=== PATIENT | male | born 1940 | race Caucasian/White ===

== ENCOUNTER → 2016-06-08 | Outpatient (CLI) | payer MEDICARE, OTHER ==
[~2016-06-08] MED LIST: FURO40TA PO; LISI40TA PO; OXYC1TAB36 PO
[2016-06-08 11:17] LABS: HDL CHOLESTEROL 45.7 MG/DL (40.0-60.0); POTASSIUM 4.6 MEQ/L (3.5-5.1)
== END ==
LOC: CLAB 10:08
PROVIDERS: ATTEND Family Medicine
DX: I10 Essential (primary) hypertension (principal); I50.30 Unspecified diastolic (congestive) heart failure; I87.8 Other specified disorders of veins; R60.9 Edema, unspecified
CPT/HCPCS: 36415; 80048; 80061

== ENCOUNTER → 2017-08-26 | Outpatient (CLI) | payer MEDICARE, OTHER ==
[~2017-08-26] MED LIST changes: +ASPI81CH6 CHEW; -FURO40TA PO
[2017-08-26 13:42] LABS: AUTOMATED NEUTROPHIL # 5.3 TH/MM3 (1.8-7.7); BASOPHIL % 0.5 % (0.0-2.0); EOSINOPHIL # 0.1 TH/MM3 (0-0.4); EOSINOPHIL % 0.7 % (0.0-4.0); LYMPH % 18.2 % (9.0-44.0); LYMPHOCYTE # 1.3 TH/MM3 (1.0-4.8); MEAN CELL VOLUME 92.2 FL (80.0-100.0); MEAN CORPUSCULAR HEMOGLOBIN 30.8 PG (27.0-34.0); MEAN CORPUSCULAR HGB CONC 33.4 % (32.0-36.0); MEAN PLATELET VOLUME 8.2 FL (7.0-11.0); MONO % 7.8 % (0.0-8.0); MONOCYTE # 0.6 TH/MM3 (0-0.9); NEUT % 72.8 % (16.0-70.0); PLATELET COUNT 255 TH/MM3 (150-450); RED BLOOD COUNT 4.23 MIL/MM3 (4.50-5.90); RED CELL DISTRIBUTION WIDTH 15.2 % (11.6-17.2); WHITE BLOOD COUNT 7.3 TH/MM3 (4.0-11.0)
[2017-08-26 14:02] LABS: ALBUMIN 3.8 GM/DL (3.4-5.0); AST (GOT) 22 U/L (15-37); BICARBONATE 22.8 MEQ/L (21.0-32.0); BLOOD UREA NITROGEN 20 MG/DL (7-18); CALCIUM 8.7 MG/DL (8.5-10.1); CHLORIDE 107 MEQ/L (98-107); CHOLESTEROL 217 MG/DL (120-200); CREATININE 1.32 MG/DL (0.60-1.30); GLOMERULAR FILTRATION RATE 53 ML/MIN (>89); GLUCOSE,FASTING 99 MG/DL (74-99); SODIUM (NA) 140 MEQ/L (136-145); TRIGLYCERIDES 184 MG/DL (42-150)
[2017-08-26 14:05] LABS: ALKALINE PHOSPHATASE 79 U/L (45-117); ALT (GPT) 27 U/L (12-78); HDL CHOLESTEROL 41.7 MG/DL (40.0-60.0); LDL CHOLESTEROL 139 MG/DL (0-99); TOTAL BILIRUBIN ADULT 1.2 MG/DL (0.2-1.0); TOTAL PROTEIN 7.6 GM/DL (6.4-8.2)
== END ==
LOC: CLAB 13:03
PROVIDERS: ATTEND Family Medicine
DX: I10 Essential (primary) hypertension (principal)
CPT/HCPCS: 36415; 80053; 80061; 85025

== ENCOUNTER 2017-09-27 06:45 | Inpatient (IN) ==
[2017-09-27] MEDS ORDERED: Metoprolol Tartrate 25 MG Tablet PO SCH (07:30)
[2017-09-27] MEDS ORDERED: Chlorhexidine Gluconate 2% 1 Pack (2 Cloths) TOPICAL SCH (07:30)
[2017-09-27] MEDS ORDERED: Vancomycin Inj 1 GM/200 ML PIGGYBACK IV.SIG SCH (07:37)
[2017-09-27] MEDS ORDERED: ceFAZolin 2 GM IV; once IV.SIG SCH (07:45)
[2017-09-27] MEDS: Dexamethasone Inj 20 MG/5 ML Vial ONE ×2 (08:00→18:27)
[2017-09-27] MEDS ORDERED: Tranexamic Acid Inj 3,000 MG in Sodium Chlor 0.9% Inj 100 ML P-ARTICULR SCH (08:00)
[2017-09-27] MEDS ORDERED: Sodium Chlor 0.9% Inj 500 ML IV.SIG SCH (08:00)
[2017-09-27] MEDS ORDERED: SODIUM CHLOR 0.9% IV.SIG SCH (08:30)
[2017-09-27] MEDS ORDERED: TRANEXAMIC ACID IV.SIG SCH (08:30)
[2017-09-27] MEDS ORDERED: Sodium Chlor 0.9% Inj 73.07 ML, Ropivacaine 0.5% PF Inj 24.63 ML, Ketorolac Inj 30 MG, ... P-ARTICULR SCH ×5 (08:30)
[2017-09-27] MEDS ORDERED: Bupivacaine/Dextrose 0.75% Inj 2 ML Ampul ONE (09:20)
[2017-09-27] MEDS ORDERED: Phenylephrine/NS 1000 MCG/10ML Syringe IV.PUSH ONE (12:00)
[2017-09-27] MEDS ORDERED: Glycopyrrolate Inj 1 MG/5 ML Syringe IV.PUSH ONE (12:00)
--- NOTE | 2017-09-27 12:12 | MP ---
cc: Alberto Cooley MD DATE OF OPERATION: 09/27/2017 DATE OF SURGERY: 09/27/2017 PREOPERATIVE DIAGNOSIS: Right knee osteoarthritis. POSTOPERATIVE DIAGNOSIS: Right knee osteoarthritis. PROCEDURE PERFORMED: Right total knee arthroplasty. SURGEON: Alberto Cooley MD BUSINESS ASSISTANT: AYESHA Barrera. ANESTHESIA: General with femoral nerve adductor canal block. ESTIMATED BLOOD LOSS: 100 mL. TOURNIQUET TIME: 32 minutes at 250 mmHg. COMPLICATIONS: None. IMPLANTS USED: DePuy Attune size 8 posterior stabilized femoral component, size 8 rotating platform tibial baseplate, size 5 mm polyethylene tibia insert, size 41 patella. JUSTIFICATION: This patient is a 77-year-old male with history of severe osteoarthritis involving the right knee joint. He has severe disabling pain with standing, walking, ambulation, weight-bearing activities, even severe pain at rest. He has failed greater than 3 months of nonoperative conservative treatment to include medication therapy, injections, ambulatory assistive aids, home exercise program, activity modification, weight loss attempts. X-ray of the right knee reveals severe osteoarthritis and [id number] joint space narrowing, subchondral sclerosis, subchondral cyst, osteophyte formation with subluxation. The patient was counseled as to the risks, benefits and alternatives to a total knee arthroplasty. The risks were discussed, which include, but are not limited to anesthesia, bleeding, infection, damage to nerves and blood vessels, pain, stiffness failure of the components, blood clots, pulmonary embolism, and even . The patient's pain was severe. He favored the benefits over the risks and did wish to proceed with surgery. PROCEDURE IN DETAIL: Written consent was obtained. The patient was identified by name, taken to the operating room and placed supine on the operating table. Anesthesia was administered as well as 2 grams of IV Ancef, 1 gram IV vancomycin. A well-padded tourniquet was placed on the right thigh, the right lower extremity prepped and draped using isopropyl alcohol, Hibiclens solution and ChloraPrep solution. After a timeout was performed, an Esmarch bandage was used to exsanguinate the right lower extremity. Tourniquet was inflated to 250 mmHg. A longitudinal incision was made over the anterior aspect of the right knee. A medial parapatellar arthrotomy was performed. The patella was everted. The patellar resection guide was used to resect 9 mm of the patella. The size 41 mm guide was placed. Three drill holes were placed and the 41 mm trial fit well. Attention was turned to the femur where an intramedullary guide aliza was placed and distal femoral guide was set to remove 10 mm of distal femur, 5 degrees off the anatomic valgus axis alignment. Oscillation saw was used to perform the distal femoral cut. Attention was turned to the tibia where an extramedullary tibial guide was set to remove 5 mm off the lateral portion of the medial tibial plateau. Tibial guides were then placed and tibial cut was performed. A 5 mm spacer block showed full extension. Attention was turned back to the femur where an AP sizing block measured a size 8. The anterior reference 3-degree external rotation guide was used to pin a size [address] Anterior, posterior and chamfer cuts were performed. A size 8 PCL box was pinned in place and the PCL was bowed out with an oscillating saw. The medial and lateral meniscus remnants were removed was well as bone and soft tissue debrided from the posterior portion of the knee. A size 8 tibial base was pinned in place and tibia drilled and punched. Trial components were evaluated and final components were pinned in placed. With the current components the leg could achieve full extension to 0 degrees and flexion to 140 with no evidence of tibial liftoff. Varus/valgus balance appeared appropriate and symmetric, and the patella was noted to track centrally. Tourniquet was deflated. Bovie cautery was used for hemostasis. The surgical wound was thoroughly irrigated with sterile saline pulse lavage with antibiotic impregnated solution. The arthrotomy incision was closed with #1 Vicryl suture, subcutaneous layer with 2-0 Vicryl. Skin was closed with Dermabond. Sterile dressing applied. The patient tolerated the procedure well with no intraoperative complications noted. Mustapha Bennett, physician election assistant certified, was present during the entire procedure to include patient positioning and the procedure itself. The medical necessity of a physician election assistant was indicated in this case due to the complexity of the procedure. He assisted with appropriate manipulation of the leg and also retraction of muscle, tendon, bone and neurovascular structures. He assisted with preparation of bone and also implantation of the prosthetic replacement. MD MARTHA Wayne/SUNSHINE , 11:51 AM , 12:11 PM
[2017-09-27] MEDS ORDERED: Post-op Orders (for Pharmacy) OTHER STA (12:16)
[2017-09-27] MEDS ORDERED: Bisacodyl 10 MG Supp RECTAL PRN (13:09)
[2017-09-27] MEDS ORDERED: HYDROmorphone PF Inj 2 MG/ML Vial IV.PUSH PRN (13:09)
[2017-09-27] MEDS ORDERED: Zolpidem Tartrate 5 MG Tablet PO PRN (13:09)
--- NOTE | 2017-09-27 13:20 | XR ---
EXAM DATE: 09/27/2017 1:17 PM EDT AGE/SEX: 77 years / Male INDICATIONS: Post op right knee surgery CLINICAL DATA: This is the patient's initial encounter. Patient reports that signs and symptoms have been present for 1 day and indicates a pain score of 0/10. MEDICAL/SURGICAL HISTORY: . stage II cervical cancer. . right carotid artery surgery COMPARISON: No prior exams available for comparison. FINDINGS: AP and lateral views of the knee following arthroplasty reveals a prosthesis in anatomic alignment. F racture is not appreciated. Air is evident within the joint CONCLUSION: Status post total knee arthroplasty. Rene Mckeon MD FACR Electronically signed by: Rene Mckeon MD 09/27/2017 1:19 PM EDT
[2017-09-27] MEDS ORDERED: *morphine SULFATE 10 MG/ML PERIprocedure ONLY ONE (13:56)
[2017-09-27] MEDS: ceFAZolin 2 GM Premix Inj 2 GM/50 ML PIGGYBACK IV.SIG SCH ×2 (15:38→22:25)
--- NOTE | 2017-09-27 15:39 | P.CONFP ---
History of Present Illness Service: Family Medicine <DanteHugo 09/27/17 15:39> Consult date: 09/27/17 <DanteHugo 09/27/17 15:39> Requesting Physician: Alberto Cooley <GonzálezcrispinHugo 09/27/17 15:39> Reason for Consult: Postop medical management <GonzálezcrispinHugo 09/27/17 15 :39> Primary Care Provider: Anderson Mishra MD, R3 <Ethan Osborn - 09/30/17 11:47> Anderson Mishra MD, R3 <GonzálezcrispinHugo 09/27/17 15:39> Family Provider: Anderson Mishra MD, R3 <Ethan Osborn - 09/30/17 11:47> Anderson Mishra MD, R3 <GonzálezcrispinHugo 09/27/17 15:39> History of Present Illness: The patient is a very pleasant 77-year-old man with PMH significant for HTN, b/l knee osteoarthritis, h/o peripheral edema, HLD, h/ o colon cancer in 2006 status post partial colectomy and chemoradiation, patient admitted to [facility] earlier today for scheduled right knee total arthroplasty. Family medicine service has been consulted for postop medical management. Patient was seen and examined in the holding room postop. He endorses right knee pain that overall he states is alleviated with his current analgesics. He otherwise denied any specific complaints or concerns. He is eager to work with PT and to increase his mobility. He states he also has severe osteoarthritis of his left knee. <GonzálezcrispinHugo 09/27/17 15:39> Review of Systems Constitutional: Denies chills, Denies fatigue, Denies fever(s) <Gonzálezcrispin Hugo 09/27/17 15:39> Eyes: Denies blurry vision, Denies pain <GonzálezcrispinHugo 09/27/17 15:39> Ears, Nose, Mouth, and Throat: Denies ear pain, Denies nasal discharge, Denies neck pain, Denies sore throat <GonzálezcrispinHugo 09/27/17 15:39> Cardiovascular: Denies chest pain, Denies irregular heart rhythm, Denies shortness of breath <DanteHugo 09/27/17 15:39> Respiratory: Denies cough, Denies shortness of breath, Denies wheezing < DanteHugo 09/27/17 15:39> Gastrointestinal: Denies abdominal pain, Denies constipation, Denies nausea, Denies vomiting <DanteHugo 09/27/17 15:39> Neurologic: Denies confusion, Denies headache(s) <DanteHugo 15:39> [facility] - History History Provided By: Patient <Eddie Howellsh 09/27/17 15:39> - Medical History Medical History: Medical History (Last Reviewed 09/27/17 @ 09:26 by Lai De La Cruz) Arthritis CHF (congestive heart failure) [place] (hard of hearing) History of colon cancer Hypertension Peripheral edema Venous stasis <OsbornEthan 09/30/17 11:47> Medical History (Last Reviewed 09/27/17 @ 09:26 by Lai De La Cruz) Arthritis CHF (congestive heart failure) [place] (hard of hearing) History of colon cancer Hypertension Peripheral edema Venous stasis <DanteHguo 09/27/17 15:39> - Surgical History Surgical History: Surgical History (Last Reviewed 09/27/17 @ 09:26 by Lai De La Cruz) History of colon resection <OsbornEthan - 09/30/17 11:47> Surgical History (Last Reviewed 09/27/17 @ 09:26 by Lai De La Cruz) History of colon resection <DanteHugo 09/27/17 15:39> - Tobacco History Second Hand Smoke Exposure: No <HomerlyudmilaHugo 09/27/17 15:39> Tobacco Use In Past 30 Days: No <HomerlyudmilaHugo 09/27/17 15:39> Smoking Status: Former smoker <DanteHugo 09/27/17 15:39> Tobacco Type: Cigarettes <HomerlyudmilaHugo 09/27/17 15:39> - Alcohol History How Often Do You Have a Drink Containing Alcohol: Monthly or less <Homerlyudmila Hugo 09/27/17 15:39> - Substance Use History Substance History: No History of Abuse <Hugo Howell - 09/27/17 15:39> - Travel History Recent Travel in the [place] Within the Last 8 Weeks: No <Hugo Howell - 15:39> Recent Travel Out of the Country Within the Last 8 Weeks: No <Hugo Howell - 09/27/17 15:39> Medications and Allergies Allergies Allergy/AdvReac Type Severity Reaction Status Date / Time No Known Allergies Allergy Verified 09/27/17 07:20 <Ethan Osborn - 09/30/17 11:47> Home Medications Medication Instructions Recorded Confirmed Type amlodipine 10 mg PO DAILY 09/14/17 09/27/17 History aspirin [Aspir-81] 81 mg PO DAILY 09/14/17 09/27/17 History lisinopril 40 mg PO DAILY 09/14/17 09/27/17 History <Ethan Osborn - 09/30/17 11:47> Active Medications: Active Medications Hydrocodone Bitart/Acetaminophen ([place] 7.5/325) 1 tab PO Q4H PRN PRN Reason: PAIN LESS THAN 5 ON SCALE Hydrocodone Bitart/Acetaminophen ([place] 7.5/325) 2 tab PO Q6H PRN PRN Reason: PAIN SCALE 5 TO 10 Al Hydroxide/Mg Hydroxide (Milk Of Magnesia Liq) 30 ml PO BID PRN PRN Reason: Mild Constipation Amlodipine Besylate (Norvasc) 10 mg PO DAILY ADAM Aspirin (Aspirin Chew) 81 mg PO BID ADAM Bisacodyl (Dulcolax Supp) 10 mg RECTAL DAILY PRN PRN Reason: SEVERE CONSITIPATION Chlorhexidine Gluconate (Chlorhexidine 2% Cloth) 3 pack TOPICAL METAL BUGGY OPERATOR ADAM Stop: 09/30/17 07:27 Last Admin: 09/27/17 07:30 Dose: 3 pack Diphenhydramine HCl (Benadryl) 25 mg PO Q6H PRN PRN Reason: ITCHING Hydromorphone HCl (Dilaudid Pf Inj) 1 mg IV.PUSH Q3H PRN PRN Reason: BREAKTHROUGH PAIN Cefazolin Sodium/Dextrose (Ancef 2 Gm Premix Inj) 2 gm in 50 mls @ 100 mls/hr IV.SIG Q6H [facility] Stop: 09/28/17 04:29 Lactated Ringer's (Lr 1000 Ml Inj) 1,000 mls @ 80 mls/hr IV.CONT .[id number] [facility] Vancomycin/Sodium Chloride (Vancomycin Inj) 1 gm in 200 mls @ 200 mls/hr IV.SIG METAL BUGGY OPERATOR [facility] Stop: 10/01/17 07:36 Last Admin: 09/27/17 10:04 Dose: 200 mls/hr Lactulose (Lactulose Liq) 30 ml PO DAILY PRN PRN Reason: SEVERE CONSITIPATION Lisinopril (Prinivil) 40 mg PO DAILY [facility] Metoprolol Tartrate (Lopressor) 25 mg PO METAL BUGGY OPERATOR [facility] Stop: 09/30/17 07:27 Miscellaneous Information ([facility] Nursing Information) 1 each OTHER UNSCH PRN PRN Reason: SEE LABEL COMMENTS Stop: 09/28/17 12:15 Multivitamins/Minerals (Theragran-M) 1 tab PO BID [facility] Stop: 11/26/17 20:59 Ondansetron HCl (Zofran Odt) 4 mg PO Q6H PRN PRN Reason: NAUSEA OR VOMITING Povidone Iodine (Betadine 5% Antisepsis Kit) 1 applicatio EACH NARE METAL BUGGY OPERATOR [facility] Stop: 09/30/17 07:27 Last Admin: 09/27/17 07:45 Dose: 1 applicatio Senna/Docusate Sodium (Elli-Colace) 1 tab PO BID [facility] Sennosides (Senokot) 17.2 mg PO BID PRN PRN Reason: Moderate Constipation Sodium Chloride (Ns Flush) 2 ml IV.FLUSH BID [facility] Sodium Chloride (Ns Flush) 2 ml IV.FLUSH UNSCH PRN PRN Reason: FLUSH AFTER USING IV ACCESS Zolpidem Tartrate (Ambien) 5 mg PO HS PRN PRN Reason: INSOMNIA <Kandavanmateus,Hugo - 09/27/17 15:39> Exam Vital signs: Vital Signs 09/27/17 07:23 09/27/17 08:20 09/27/17 12:15 Temperature 99.0 F 97.4 F L Pulse Rate 68 75 Respiratory Rate 20 24 Blood Pressure 160/76 H 99/54 L Pulse Oximetry 97 98 92 L 09/27/17 12:30 09/27/17 12:46 07/23/18 13:00 Temperature Pulse Rate 79 73 67 Respiratory Rate 16 14 18 Blood Pressure 104/60 128/60 113/59 L Pulse Oximetry 96 97 97 09/27/17 14:00 Temperature Pulse Rate 72 Respiratory Rate 20 Blood Pressure 124/60 Pulse Oximetry 98 Intake & Output 09/26/17 09/27/17 09/27/17 18:59 06:59 18:59 Intake Total 2200 / 2200 Output Total 250 / 250 Balance 1950 / 1950 Weight 125.3 kg Intake: IV 1000 / 1000 LR 1000 mL Inj 1,000 ML @ 30 1000 / 1000 mls/hr IV.SIG .Q24H AD[facility] Rx#: [id number] Anesthesia Amount 1200 / 1200 Output: Urine 100 / 100 Estimated Blood Loss 150 / 150 Other: # Voids 1 Weight On Admission 125.3 kg <GonzálezHugo roa - 09/27/17 15:39> Narrative: GENERAL: NAD, lying comfortably in bed NEURO: Alert. Normal speech. [facility] grossly intact. SKIN: Warm and dry. HEAD: Normocephalic. Atraumatic. EYES: EOMI. No scleral icterus. No injection or drainage. ENT: No nasal drainage. Moist mucous membranes. No oral ulcers or lesions. NECK: Supple, trachea midline. No JVD. CARDIOVASCULAR: Regular rate and rhythm without murmurs, rubs, or gallops. Peripheral pulses 2+. Capillary refill < 2 seconds. RESPIRATORY: Breath sounds clear to auscultation and equal bilaterally, without wheezes, rales, or rhonchi. No accessory muscle use. GASTROINTESTINAL: Abdomen soft, nontender, nondistended MUSCULOSKELETAL: No lower extremity edema. Right leg wrapped in postop dressing. FROM of toes bilaterally. Normal cap refill. <Hugo Howell - 09/27/17 15:39> Results - Labs Result diagrams: 09/28/17 05:02 09/28/17 05:02 <Ethan Osborn - 09/30/17 11:47> - Imaging Impressions Knee X-Ray 09/27/17 00:00 CONCLUSION: Status post total knee arthroplasty. Rene Mckeon MD FACR <Ethan Osborn - 09/30/17 11:47> Impressions Knee X-Ray 09/27/17 00:00 CONCLUSION: Status post total knee arthroplasty. Rene Mckeon MD FACR <GonázlezmickimateusHugo - 09/27/17 15:39> Assessment and Plan - Assessment (1) S/P total knee arthroplasty Code(s): Z96.659 - Presence of unspecified artificial knee joint Status: Acute Onset Date: ~09/27/17 Qualifiers: Laterality: right Qualified Code(s): Z96.651 - Presence of right artificial knee joint Plan: Patient is s/p right total knee arthroplasty by orthopedic surgery 09/27/2017 Pain adequately controlled at this time Continue [place] 7.5/325 po q6h as needed, dilauded 1 mg q3h prn breakthrough PT consulted for recommendations Case management on board to assist with rehab placement Continue aspirin 81 mg po bid SCDs to left lower extremity (2) Acute kidney injury (3) Hypertension Code(s): I10 - Essential (primary) hypertension Status: Chronic Plan: BP elevated on admission to 160/76, ranging 90s-120s/50s-60s postop Continue home antihypertensives lisinopril 40 mg daily and amlodipine 10 mg po daily (4) Nutrition, metabolism, and development symptoms Code(s): R63.8 - Other symptoms and signs concerning food and fluid intake Status: Acute Plan: Fluids: per PO Electrolytes: will follow ordered for 09/28 Nutrition: regular DVT ppx: aspirin 81 mg bid, SCD to left lower extremity GI ppx: not indicated at this time <Hugo Howell - 09/27/17 15:21> - Attending Attestation See the residents documentation for details. Parts of this note were created using [email or web address] voice recognition software program. While efforts were made to correct any mistakes made by this software, some mistakes, errors, and omissions may remain in the final note that were not caught when the note was originally created. Plan of care was discussed and agreed upon with the patient as specifically documented in the above note. An opportunity to ask questions with explanation was provided. Patient voiced understanding on all information reviewed and discussed. <Ethan Osborn - 09/30/17 11:47>
[2017-09-27] MEDS: Senna/Docusate Sodium 8.6/50 MG Tablet PO SCH (22:26)
[2017-09-27] MEDS: Multivitamin/Minerals Therapeutic Tablet PO SCH (22:27)
[2017-09-28] MEDS: ceFAZolin 2 GM Premix Inj 2 GM/50 ML PIGGYBACK IV.SIG SCH (04:57)
[2017-09-28 05:56] LABS: Hematocrit 33.7 % (39.0-51.0); Hemoglobin 11.2 gm/dL (13.0-17.0)
[2017-09-28 06:20] LABS: Calcium 8.3 mg/dL (8.5-10.1); Potassium 4.2 meq/L (3.5-5.1)
--- NOTE | 2017-09-28 08:01 | P.PNOP ---
Subjective Interval history: pain controlled. Physical Exam Vital signs: Vital Signs 09/27/17 08:20 09/27/17 12:15 09/27/17 12:30 Temperature 97.4 F L Pulse Rate 75 79 Respiratory Rate 24 16 Blood Pressure 99/54 L 104/60 Pulse Oximetry 98 92 L 96 09/27/17 12:46 09/27/17 13:00 09/27/17 14:00 Temperature Pulse Rate 73 67 72 Respiratory Rate 14 18 20 Blood Pressure 128/60 113/59 L 124/60 Pulse Oximetry 97 97 98 09/27/17 15:00 09/27/17 16:00 09/27/17 20:00 Temperature 97.4 F L 97.8 F Pulse Rate 97 H 80 85 Respiratory Rate 16 18 18 Blood Pressure 124/75 147/70 H 153/78 H Pulse Oximetry 97 18 L 94 L 09/28/17 00:00 09/28/17 04:00 Temperature 97.5 F L 98.1 F Pulse Rate 63 89 Respiratory Rate 18 18 Blood Pressure 134/69 165/74 H Pulse Oximetry 94 L 93 L Intake & Output 09/27/17 09/28/17 09/28/17 18:59 06:59 18:59 Intake Total 4148.795 / 4148.795 1010 / 1010 50 / 50 Output Total 600 / 600 500 / 500 Balance 3548.795 / 3548.795 510 / 510 50 / 50 Weight 125.3 kg 123.4 kg Intake: IV 2548.795 / 2548.795 50 / 50 50 / 50 LR 1000 mL Inj 1,000 ML @ 80 1000 / 1000 mls/hr IV.CONT .[id number] AD[facility] Rx# :[id number] LR 1000 mL Inj 1,000 ML @ 30 1000 / 1000 mls/hr IV.SIG .Q24H ADAM Rx#: [id number] Cyklokapron Inj 1,879.5 MG In 118.795 / 118.795 NS Inj 100 ML @ 200 mls/hr IV. SIG ONCE ADAM Rx#:[id number] Vancomycin Inj 1 gm In 200 ml @ 200 / 200 200 mls/hr IV.SIG ZIPPER JOINER ADAM Rx#:[id number] Ancef 2 GM Premix Inj 2 gm In 100 / 100 50 / 50 50 / 50 50 ml @ 100 mls/hr IV.SIG Q6H ADAM Rx#:[id number] Cyklokapron Inj 3,000 MG In NS 130 / 130 Inj 100 ML @ 200 mls/hr P- ARTICULR ONCE ADAM Rx#:[id number] Oral 400 / 400 960 / 960 Anesthesia Amount 1200 / 1200 Output: Urine 450 / 450 500 / 500 Estimated Blood Loss 150 / 150 Other: # Voids 1 Date of Last Bowel Movement 09/26/17 # Bowel Movements 0 Weight On Admission 125.3 kg Narrative: sitting in chair, nad dressing c/d/i neg homans nvi Results - Labs CBC & Chem 7: 09/28/17 05:02 09/28/17 05:02 Laboratory Results - last 24 hr 09/27/17 09/28/17 09/28/17 07:25 05:02 05:02 Hgb 11.2 L Hct 33.7 L Sodium 142 Potassium 4.2 Chloride 108 H Carbon Dioxide 24.0 Anion Gap 10 BUN 30 H Creatinine 1.57 H Estimated GFR 43 L Random Glucose 204 H Calcium 8.3 L Blood Type A Positive Blood Type Recheck Required Antibody Screen Negative - Imaging Impressions Knee X-Ray 09/27/17 00:00 CONCLUSION: Status post total knee arthroplasty. Rene Mckeon MD FACR Assessment and Plan - Ortho Post Op Day # 1 - Assessment and Plan s/p R TKA wbat ok to maintain dressing unless saturated asa 81 d/c planning home with [facility] and pt - cleared today if does well in PT f/up dr. clifford 2 weeks
--- NOTE | 2017-09-28 08:03 | P.DCO ---
- Physical Therapy Physical Therapy: Gait training, Safety evaluation, Transfer training, bed to chair Knee: Total knee, Protocol: Right, Full weight bearing Right Lower Extremity Weight Bearing: Weight bearing as tolerated - Nursing RN: 3 days/week x 2 weeks Nursing: Dressing changes Dressing changes: Daily dressing change - Certification Need for Home Health services: I have seen patient Markus Ramsey on 09/28/17. My clinical findings support the need for the requested home health care services because: Need for Home Health Services: Limited ability to care for self, High risk of falls Homebound Certification: I certify that my clinical findings support that this patient is homebound because: Homebound Certification: Post-op weakness, Unsteady gait/balance
[2017-09-28] MEDS: Senna/Docusate Sodium 8.6/50 MG Tablet PO SCH (08:33)
[2017-09-28] MEDS: Multivitamin/Minerals Therapeutic Tablet PO SCH (08:33)
[2017-09-28] MEDS ORDERED: Lisinopril 20 MG Tablet PO SCH (09:00)
[2017-09-28] MEDS ORDERED: amLODIPine 10 MG Tablet PO SCH (09:00)
--- NOTE | 2017-09-28 10:15 | P.PNFP ---
Subjective Interval history: No acute events overnight. Afebrile, vital signs stable. Patient sitting in chair this a.m., reports he is doing well and eager to go home. Denies specific complaints. Specifically denies fevers or chills, chest pain, dyspnea, cough, abdominal pain. States his knee pain is controlled. Endorses good appetite. Endorses flatus. Bedside blood glucose this morning checked during examination of patient and noted to be 133 mg/dL. <Hugo Howell - 09/28/17 10:14> Results - Labs Result diagrams: 09/28/17 05:02 09/28/17 05:02 <Ethan Osborn - 09/30/17 11:57> Abnormal lab results 09/28/17 09/28/17 09/28/17 Range/Units 05:02 05:02 08:44 Hgb 11.2 L (13.0-17.0) gm/dL Hct 33.7 L (39.0-51.0) % Chloride 108 H (98-107) meq/L BUN 30 H (7-18) mg/dL Creatinine 1.57 H (0.60-1.30) mg/dL Estimated GFR 43 L (>89) mL/min POC Glucose 133 H (68-110) mg/dl Random Glucose 204 H (74-106) mg/dL Calcium 8.3 L (8.5-10.1) mg/dL Short CBC 09/28/17 Range/Units 05:02 Hgb 11.2 L (13.0-17.0) gm/dL Hct 33.7 L (39.0-51.0) % BMP 09/28/17 05:02 Sodium 142 Potassium 4.2 Chloride 108 H Carbon Dioxide 24.0 BUN 30 H Creatinine 1.57 H Calcium 8.3 L <Hugo Howell - 09/28/17 10:14> - Imaging Impressions Knee X-Ray 09/27/17 00:00 CONCLUSION: Status post total knee arthroplasty. Rene Mckeon MD FACR <Ethan Osborn - 09/30/17 11:57> Impressions Knee X-Ray 09/27/17 00:00 CONCLUSION: Status post total knee arthroplasty. Rene Mckeon MD FACR <Hugo Howell - 09/28/17 10:14> Physical Exam Vital signs: Vital Signs 09/27/17 12:15 09/27/17 12:30 09/27/17 12:46 Temperature 97.4 F L Pulse Rate 75 79 73 Respiratory Rate 24 16 14 Blood Pressure 99/54 L 104/60 128/60 Pulse Oximetry 92 L 96 97 09/27/17 13:00 09/27/17 14:00 09/27/17 15:00 Temperature Pulse Rate 67 72 97 H Respiratory Rate 18 20 16 Blood Pressure 113/59 L 124/60 124/75 Pulse Oximetry 97 98 97 09/27/17 16:00 09/27/17 20:00 09/28/17 00:00 Temperature 97.4 F L 97.8 F 97.5 F L Pulse Rate 80 85 63 Respiratory Rate 18 18 18 Blood Pressure 147/70 H 153/78 H 134/69 Pulse Oximetry 18 L 94 L 94 L 09/28/17 04:00 09/28/17 08:00 09/28/17 09:03 Temperature 98.1 F 97.6 F Pulse Rate 89 71 Respiratory Rate 18 18 18 Blood Pressure 165/74 H 142/76 H Pulse Oximetry 93 L 95 Intake & Output 09/27/17 09/28/17 09/28/17 18:59 06:59 18:59 Intake Total 4148.795 / 4148.795 1010 / 1010 50 / 50 Output Total 600 / 600 500 / 500 Balance 3548.795 / 3548.795 510 / 510 50 / 50 Weight 125.3 kg 123.4 kg Intake: IV 2548.795 / 2548.795 50 / 50 50 / 50 LR 1000 mL Inj 1,000 ML @ 80 1000 / 1000 mls/hr IV.CONT .[id number] [facility] Rx# :[id number] LR 1000 mL Inj 1,000 ML @ 30 1000 / 1000 mls/hr IV.SIG .Q24H [facility] Rx#: [id number] Cyklokapron Inj 1,879.5 MG In 118.795 / 118.795 NS Inj 100 ML @ 200 mls/hr IV. SIG ONCE [facility] Rx#:[id number] Vancomycin Inj 1 gm In 200 ml @ 200 / 200 200 mls/hr IV.SIG ORDER CHECKER ADAM Rx#:[id number] Ancef 2 GM Premix Inj 2 gm In 100 / 100 50 / 50 50 / 50 50 ml @ 100 mls/hr IV.SIG Q6H [facility] Rx#:[id number] Cyklokapron Inj 3,000 MG In NS 130 / 130 Inj 100 ML @ 200 mls/hr P- ARTICULR ONCE ADAM Rx#:[id number] Oral 400 / 400 960 / 960 Anesthesia Amount 1200 / 1200 Output: Urine 450 / 450 500 / 500 Estimated Blood Loss 150 / 150 Other: # Voids 1 Date of Last Bowel Movement 09/26/17 # Bowel Movements 0 Weight On Admission 125.3 kg <Hugo Howell - 09/28/17 10:14> Narrative: GENERAL: NAD, sitting comfortably in chair NEURO: Alert. Normal speech. tabulating clerk grossly intact. SKIN: Warm and dry. HEAD: Normocephalic. Atraumatic. EYES: EOMI. No scleral icterus. No injection or drainage. ENT: No nasal drainage. Moist mucous membranes. No oral ulcers or lesions. NECK: Supple, trachea midline. No JVD. CARDIOVASCULAR: Regular rate and rhythm without murmurs, rubs, or gallops. Peripheral pulses 2+. Capillary refill < 2 seconds. RESPIRATORY: Breath sounds clear to auscultation and equal bilaterally, without wheezes, rales, or rhonchi. No accessory muscle use. GASTROINTESTINAL: Abdomen soft, nontender, nondistended MUSCULOSKELETAL: No lower extremity edema. Dressing right lower extremity clean and dry. Normal cap refill. <Hugo Howell - 09/28/17 10:14> Assessment and Plan - Assessment (1) S/P total knee arthroplasty Code(s): Z96.659 - Presence of unspecified artificial knee joint Status: Acute Onset Date: ~09/27/17 Plan: Patient is s/p right total knee arthroplasty by orthopedic surgery 09/27/2017 Pain adequately controlled at this time Continue [place] 7.5/325 po q6h as needed, dilauded 1 mg q3h prn breakthrough PT consulted for recommendations Case management on board, anticipate discharge home today with HHC and PT if patient does well with inpatient PT today Continue aspirin 81 mg po bid per ortho recs SCDs to left lower extremity (2) Acute kidney injury Code(s): N17.9 - Acute kidney failure, unspecified Status: Acute Plan: Cr noted to be elevated to 1.57 this AM, baseline Cr ~1.3 last checked outpatient on 08/26/2017 and noted to be 1.32 with BUN of 20, GFR of [address] the patient in stage G3a CKD; patient appears to have acute on chronic kidney injury although chronicity of decreased GFR cannot be determined Discussed with patient this morning, consider etiology due to prerenal injury due to hypovolemia, ATN. No issues voiding. Patient does have history of elevated PSA and chronic prostatitis Encouraged adequate PO hydration at this time, will continue to monitor Advised against NSAIDs, avoid other nephrotoxic agents (3) Hypertension Code(s): I10 - Essential (primary) hypertension Status: Chronic Plan: BP elevated on admission to 160/76, ranging 90s-120s/50s-60s postop Continue home antihypertensives lisinopril 40 mg daily and amlodipine 10 mg po daily (4) Nutrition, metabolism, and development symptoms Code(s): R63.8 - Other symptoms and signs concerning food and fluid intake Status: Acute Plan: Fluids: per PO Electrolytes: will follow ordered for 09/28 Nutrition: regular DVT ppx: aspirin 81 mg bid per ortho, SCD to left lower extremity GI ppx: not indicated at this time <Hugo Howell - 09/28/17 09:57> - Attending Attestation See the residents documentation for details. Parts of this note were created using [email or web address] voice recognition software program. While efforts were made to correct any mistakes made by this software, some mistakes, errors, and omissions may remain in the final note that were not caught when the note was originally created. Plan of care was discussed and agreed upon with the patient as specifically documented in the above note. An opportunity to ask questions with explanation was provided. Patient voiced understanding on all information reviewed and discussed. <Ethan Osborn - 09/30/17 11:57> <Hugo Howell - Last Filed: 09/28/17 09:57> (1) S/P total knee arthroplasty Qualifiers: Laterality: right Qualified Code(s): Z96.651 - Presence of right artificial knee joint <Hugo Howell - Last Filed: 09/28/17 09:57> (1) S/P total knee arthroplasty Qualifiers: Laterality: right Qualified Code(s): Z96.651 - Presence of right artificial knee joint
--- NOTE | 2017-09-29 15:58 | XR ---
EXAM DATE: 09/27/2017 1:17 PM EDT AGE/SEX: 77 years / Male INDICATIONS: Post op right knee surgery CLINICAL DATA: This is the patient's initial encounter. Patient reports that signs and symptoms have been present for 1 day and indicates a pain score of 0/ 10. MEDICAL/SURGICAL HISTORY: . stage II cervical cancer. . right carotid artery surgery COMPARISON: No prior exams available for comparison. FINDINGS: AP and lateral views of the knee following arthroplasty reveals a prosthesis in anatomic alignment. Fracture is not appreciated. Air is evident within the joint CONCLUSION: Status post total knee arthroplasty. Rene Mckeon MD FACR Electronically signed by: Rene Mckeon MD 09/27/2017 1:19 PM EDT [facility]
--- NOTE | 2017-10-05 09:58 | MD ---
cc: Alberto Cooley MD DATE OF DISCHARGE: 09/28/2017 ADMITTING DIAGNOSIS: Severe degenerative osteoarthritis, right knee. DISCHARGE DIAGNOSIS: Severe degenerative osteoarthritis, right knee. HISTORY OF PRESENT ILLNESS: Mr. Ramsey is a 77-year-old male who presented to the [facility] for evaluation by Dr. Alberto Cooley regarding severe and progressive bilateral knee pain, right greater than left. The patient states the pain is limiting his activities of daily living and his ability to ambulate safely. He notes he has a severe aching sensation in the right knee with any type of weightbearing. He has no alleviating factors, although in the past he has tried medications, bracing, physical therapy, home exercise program, weight loss attempts and narcotic pain medication, as well as corticosteroid injections without relief of symptoms. He does have x-ray evidence of severe degenerative osteoarthritis of the right knee. While in the office, the patient was counseled on the diagnosis and treatment options. Risks, benefits, and indications were all discussed. The patient did elect to proceed with surgical intervention to include a right total knee arthroplasty. DATE OF SURGERY: 09/27/2017, right total knee arthroplasty. POSTOP: After surgery, the patient admitted to [facility] where he received appropriate medical management, pain control, DVT prophylaxis, as well as physical therapy. DISCHARGE: Once being discharged from the hospital, the patient is cleared to go home where he will receive home health care and home physical therapy. He is in stable condition. He may weight bear as tolerated. He has been instructed on wound care management. The patient has been instructed on DVT prophylaxis medication as well as pain medication. He has been provided a followup appointment approximately 2 weeks from his date of surgery. The patient has asked appropriate questions, which have been answered. The patient cleared for discharge. Dictated by AYESHA Wise Alberto Cooley MD JWM/STEVE , 08:07 AM , 08:22 AM
== END 2017-09-28 14:37 | disposition home health service (06) ==
LOC: HSDI 06:45 → N06 17:12
PROVIDERS: ADMIT Orthopaedic Surgery Sports Medicine; ATTEND Orthopaedic Surgery Sports Medicine

== ENCOUNTER 2018-02-07 06:57 | Inpatient (IN) ==
[2018-02-07] MEDS ORDERED: fentaNYL Citrate Inj 100 MCG/2 ML Ampul ONE (07:20)
[2018-02-07] MEDS ORDERED: Bupivacaine Liposomal PF 1.3% Inj 20 ML Vial ONE (07:20)
[2018-02-07] MEDS ORDERED: Chlorhexidine 4% Topical 120 APPLIC/120 ML Bottle TOPICAL SCH (07:30)
[2018-02-07] MEDS ORDERED: Vancomycin Inj 1,000 MG in Sodium Chlor 0.9% Inj 250 ML IV.SIG SCH (07:30)
[2018-02-07] MEDS ORDERED: ceFAZolin 2 GM Premix Inj 2 GM/50 ML PIGGYBACK IV.SIG SCH (07:30)
[2018-02-07] MEDS ORDERED: Sodium Chlor 0.9% Inj 500 ML IV.CONT ONE (07:45)
[2018-02-07] MEDS ORDERED: Chlorhexidine Gluconate 2% 1 Pack (2 Cloths) TOPICAL ONE (07:45)
[2018-02-07] MEDS ORDERED: Metoprolol Tartrate 25 MG Tablet PO ONE (07:45)
[2018-02-07] MEDS ORDERED: Dexamethasone Inj 20 MG/5 ML Vial IV.PUSH ONE (07:45)
[2018-02-07] MEDS ORDERED: Propofol Inj 500 MG/50 ML Vial ONE (07:57)
[2018-02-07] MEDS ORDERED: Tranexamic Acid Inj 3,000 MG in Sodium Chlor 0.9% Inj 100 ML P-ARTICULR SCH (08:00)
[2018-02-07] MEDS ORDERED: Sodium Chlor 0.9% Inj 73.07 ML, Ropivacaine 0.5% PF Inj 24.63 ML, Ketorolac Inj 30 MG, ... P-ARTICULR SCH ×5 (08:00)
[2018-02-07] MEDS ORDERED: TRANEXAMIC ACID IV.SIG SCH (08:00)
[2018-02-07] MEDS ORDERED: SODIUM CHLOR 0.9% IV.SIG SCH (08:00)
[2018-02-07] MEDS ORDERED: HYDROmorphone PF Inj 1 MG/ML Ampul IV.PUSH PRN (09:37)
[2018-02-07] MEDS ORDERED: Post-op Orders (for Pharmacy) OTHER STA (09:37)
--- NOTE | 2018-02-07 12:22 | MP ---
cc: Alberto Cooley MD DATE OF OPERATION: 02/07/2018 PREOPERATIVE DIAGNOSIS: Left knee osteoarthritis. POSTOPERATIVE DIAGNOSIS: Left knee osteoarthritis. PROCEDURE: Left total knee arthroplasty. SURGEON: Alberto Cooley MD SPECIAL EDUCATION SUPERINTENDENT: AYESHA Barrera. ANESTHESIA: General. ESTIMATED BLOOD LOSS: 100 mL TOURNIQUET TIME: 33 minutes at 250 mmHg. COMPLICATIONS: None. IMPLANTS USED: DePuy Attune size 7 posterior stabilized femoral component, size 8 rotating platform tibial baseplate, size 5 mm polyethylene tibial insert, size 41 patella. INDICATIONS: This patient is a 77-year-old male with history of severe osteoarthritis involving the left knee joint. He severe disabling pain with standing, walking, ambulation, weightbearing activities and severe pain at rest. He has failed greater than 3 months of nonoperative conservative treatment to include medication therapy, injections, ambulatory assistive aids, home exercise program, activity modification and weight loss. X-rays left knee revealed osteoarthritis with [id number] joint space narrowing, subchondral sclerosis, subchondral cyst, osteophyte formation with deformity and subluxation. The patient was counseled as to the risks, benefits and alternatives to a total knee arthroplasty. The risks were discussed included, but not limited to anesthesia, bleeding, infection, damage to nerves and blood vessels, pain, stiffness, failure of implants blood clots, pulmonary embolism and even . The patient's pain is severe. He favors the benefits over the risks. He did wish to proceed with surgery. PROCEDURE IN DETAIL: Written consent was obtained. The patient was identified by name, taken to the operating room and placed supine on the operating room table. General anesthesia was administered to the patient as well as 2 grams IV Ancef and 1 gram IV vancomycin. A well-padded tourniquet was placed on the left thigh. The left lower extremity prepped and draped using isopropyl alcohol, Hibiclens solution and ChloraPrep solution. After a timeout was performed, an Esmarch bandage was used to exsanguinate the left lower extremity. Tourniquet was inflated to 250 mmHg lower; quadrant incision was made over the anterior aspect of the left knee. A medial parapatellar arthrotomy was performed. The patella was everted. A patellar resection guide was used to resect 9 mm of the patella, a size 41 mm guide was placed; 3 drill holes were placed and a 41 mm trial fit well. Attention was turned to the femur where an intramedullary guide was placed. The distal femoral guide was set to remove 11 mm of distal femur, oscillating saw was used to perform distal femoral cut. Attention was turned to the tibia where an extramedullary tibial guide was set to remove 6 mm off the lowest portion of the medial tibial plateau. Tibial guide was placed and tibial cut was performed. A 5 mm spacer block showed full extension. Attention was turned back to the femur. AP sizer block was measured to a size 7. The anterior reference 3-degree external rotation guide was used to suspend a size [address] Anterior, posterior and chamfer cuts were performed. A size 7 PCL was pinned in place and the PCL was boxed out with an oscillating saw. The medial and lateral meniscus remnants were removed, as well as bone and soft tissue debris from the posterior portion of the knee. A size 8 tibia baseplate was pinned in place and tibia was drilled and punched. Trial components were removed and final components were cemented in to place. With the current components, the leg could active full extension to 0 degrees and flexion to 140. No evidence of tibial liftoff. Varus valgus balance appeared appropriate and symmetric and the patella was noted to track centrally. With the tourniquet deflated, Bovie cautery was used for hemostasis. The knee was thoroughly irrigated with sterile saline. pulse lavage with antibiotic-impregnated saline solution. The arthrotomy incision was closed with #1 Vicryl suture, subcutaneous layer with 2-0 Vicryl suture. Skin was closed with Dermabond. Sterile dressing - The patient tolerated the procedure well with no intraoperative complications noted. Mustapha Bennett, Physician Fiscal Accountant-Certified was present during the entire procedure to include patient positioning and the procedure itself. Medical necessity of a physician assistant branch manager was indicated in this case due to the complexity of the procedure. He assisted with appropriate manipulation of the leg and also retraction of muscle, tendon, bone, and neurovascular vessel structures. He assisted with preparation of bone and also implantation of the prosthetic replacement. MD MARTHA Wayne/braeden , 11:16 AM , 11:23 AM
--- NOTE | 2018-02-07 12:38 | XR ---
EXAM DATE: 02/07/2018 12:21 PM EST AGE/SEX: 77 years / Male INDICATIONS: Post-op left knee. CLINICAL DATA: This is the patient's initial encounter. Patient reports that signs and symptoms have been present for 1 day and indicates a pain score of 0/10. MEDICAL/SURGICAL HISTORY: . Diabetes mellitus type II. Hypertension. Hx of colon CA. . right k nee replacement COMPARISON: No prior exams available for comparison. FINDINGS: Status post knee replacement. There is good position and alignment of the knee prosthesis. Postsurgic al changes are demonstrated. The bony structures are grossly intact. CONCLUSION: Good position and alignment on this postoperative study. Electronically signed by: Karthik Kitchen MD 02/07/2018 12:37 PM EST
[2018-02-07] MEDS: ceFAZolin 2 GM Premix Inj 2 GM/50 ML PIGGYBACK IV.SIG SCH ×2 (18:54→23:56)
[2018-02-07] MEDS ORDERED: Zolpidem Tartrate 5 MG Tablet PO PRN (21:00)
[2018-02-07] MEDS: Multivitamin/Minerals Therapeutic Tablet PO SCH (21:21)
[2018-02-07] MEDS: Furosemide 20 MG Tablet PO SCH (21:21)
[2018-02-07] MEDS: Senna/Docusate Sodium 8.6/50 MG Tablet PO SCH (21:21)
[2018-02-08 04:19] LABS: Hematocrit 32.1 % (39.0-51.0); Hemoglobin 10.5 gm/dL (13.0-17.0)
[2018-02-08] MEDS: ceFAZolin 2 GM Premix Inj 2 GM/50 ML PIGGYBACK IV.SIG SCH (06:01)
--- NOTE | 2018-02-08 07:57 | P.PNOP ---
Subjective Interval history: doing very well. ready to go home. Physical Exam Vital signs: Vital Signs 02/07/18 11:27 02/07/18 11:30 02/07/18 11:45 Temperature 99.7 F H Pulse Rate 70 71 65 Respiratory Rate 18 14 12 Blood Pressure 138/67 141/72 H 145/70 H Pulse Oximetry 97 96 96 02/07/18 12:00 02/07/18 12:15 02/07/18 13:00 Temperature Pulse Rate 63 62 66 Respiratory Rate 14 15 22 Blood Pressure 144/68 H 147/77 H 150/72 H Pulse Oximetry 97 97 95 02/07/18 14:00 02/07/18 15:30 02/07/18 16:00 Temperature 97.3 F L Pulse Rate 57 L 65 79 Respiratory Rate 18 16 18 Blood Pressure 135/58 L 142/62 H 168/75 H Pulse Oximetry 94 L 95 96 02/07/18 20:01 02/07/18 23:57 02/08/18 04:17 Temperature 98.2 F 98.1 F 98.3 F Pulse Rate 74 70 64 Respiratory Rate 17 18 18 Blood Pressure 149/70 H 158/74 H 167/72 H Pulse Oximetry 95 94 L 94 L Intake & Output 02/07/18 02/08/18 02/08/18 18:59 06:59 18:59 Intake Total 1360 / 1360 2310 / 2310 Output Total 500 / 500 Balance 860 / 860 2310 / 2310 Weight 125.1 kg 123.7 kg Intake: IV 1050 / 1050 LR 1000 mL Inj 1,000 ML @ 80 950 / 950 mls/hr IV.CONT .[id number] [facility] Rx# :[id number] Ancef 2 GM Premix Inj 2 gm In 100 / 100 50 ml @ 100 mls/hr IV.SIG Q6H ADAM Rx#:[id number] Oral 360 / 360 1260 / 1260 Anesthesia Amount 1000 / 1000 Output: Urine 400 / 400 Estimated Blood Loss 100 / 100 Other: # Voids 6 # Incontinent Voids 1 Date of Last Bowel Movement 02/07/18 02/07/18 # Bowel Movements 0 Weight On Admission 125.2 kg Narrative: sitting in chair, nad dressing c/d/i neg homans nvi Results - Labs CBC & Chem 7: 12/04/18 03:53 Laboratory Results - last 24 hr 02/07/18 02/08/18 07:27 03:53 Hgb 10.5 L Hct 32.1 L Blood Type A Positive Blood Type Recheck Not needed Antibody Screen Negative - Imaging Impressions Knee X-Ray 02/07/18 09:35 CONCLUSION: Good position and alignment on this postoperative study. Assessment and Plan - Ortho Post Op Day # 1 - Assessment and Plan s/p L TKA wbat ok to maintain dressing unless saturated asa 81 d/c planning home with hhc and pt - cleared today f/up dr. clifford 2 weeks
--- NOTE | 2018-02-08 07:57 | P.DCO ---
- Physical Therapy Physical Therapy: Gait training, Safety evaluation, Transfer training, bed to chair Knee: Total knee, Protocol: Left, Full weight bearing Left Lower Extremity Weight Bearing: Weight bearing as tolerated - Nursing Nursing: Dressing changes Dressing changes: Do not change dressing, Daily dressing change - Certification Need for Home Health services: I have seen patient Markus Ramsey on 02/08/18. My clinical findings support the need for the requested home health care services because: Need for Home Health Services: Limited ability to care for self, High risk of falls Homebound Certification: I certify that my clinical findings support that this patient is homebound because: Homebound Certification: Post-op weakness, Unsteady gait/balance
[2018-02-08] MEDS: Multivitamin/Minerals Therapeutic Tablet PO SCH (08:22)
[2018-02-08] MEDS: Senna/Docusate Sodium 8.6/50 MG Tablet PO SCH (08:22)
[2018-02-08] MEDS: Furosemide 20 MG Tablet PO SCH (08:22)
[2018-02-08] MEDS ORDERED: Lisinopril 20 MG Tablet PO SCH (09:00)
[2018-02-08] MEDS ORDERED: amLODIPine 10 MG Tablet PO SCH (09:00)
[2018-02-08 09:14] VITALS: BP 148/72; PULSE 87; RESP 20; TEMP 97; O2SAT 97
== END 2018-02-08 10:44 | disposition home health service (06) ==
LOC: HSDI 06:57 → N06 15:46
PROVIDERS: ADMIT Orthopaedic Surgery Sports Medicine; ATTEND Orthopaedic Surgery Sports Medicine